=== PATIENT | male | born 1950 | race Caucasian/White ===

== ENCOUNTER 2016-11-05 21:33 | Inpatient (IN) | payer OTHER ==
[~2016-11-05] VITALS: Ht 172.7 cm; Wt 76.4 kg
[2016-11-05 22:36] LABS: BASOPHILS # (AUTO) 0.1 /CMM (0.0-0.2); BASOPHILS % (AUTO) 0.7 % (0.0-2.0); EOSINOPHILS % (AUTO) 0.5 % (0.0-6.0); HEMATOCRIT 43 % (39-51); HEMOGLOBIN 14.4 g/dL (13.5-17.5); LYMPHOCYTES # (AUTO) 0.4 /CMM (0.8-4.8); LYMPHOCYTES % (AUTO) 5.1 % (20.0-44.0); MEAN CORPUSCULAR HEMOGLOBIN 34 PG (26.0-33.0); MEAN CORPUSCULAR HGB CONC 33 g/dl (31.0-36.0); MEAN CORPUSCULAR VOLUME 104 fL (80-96); MONOCYTES # (AUTO) 0.4 /CMM (0.1-1.30); MONOCYTES % (AUTO) 4.9 % (2.0-12.0); NEUTROPHILS # (AUTO) 7.1 /CMM (1.8-8.9); NEUTROPHILS % (AUTO) 88.8 % (43.0-81.0); PLATELET COUNT (AUTO) 196 /CMM (150-450); RDW COEFFICIENT OF VARIATION 13.8 (11.5-15.0); RED BLOOD CELL COUNT(AUTO) 4.19 MIL/uL (4.5-6.0)
[2016-11-05 22:41] LABS: CARBON DIOXIDE 22 mmol/L (21-32); CHLORIDE 97 mmol/L (98-107); CREATININE 0.9 mg/dL (0.6-1.3); GLUCOSE 110 mg/dL (74-106); POTASSIUM 3.3 mmol/L (3.5-5.1); SODIUM SERUM 135 mmol/L (136-145); UREA NITROGEN, BLOOD 18 mg/dL (7-18)
[2016-11-05 22:47] LABS: INR 0.97 (0.87-1.13); PROTHROMBIN TIME 10.4 SECS (9.5-12.7)
[2016-11-05 22:52] LABS: TROPONIN I < 0.017 ng/mL (0.00-0.056)
[2016-11-05 22:55] LABS: ALANINE AMINOTRANSFERASE 29 U/L (12-78); ALBUMIN 3.4 g/dL (3.4-5.0); ALKALINE PHOSPHATASE 97 U/L (46-116); ASPARTATE AMINOTRANSFERASE 35 U/L (15-37); BILIRUBIN,DIRECT 0.5 mg/dL (0.0-0.2); BILIRUBIN,TOTAL 1.1 mg/dL (0.2-1.0); TOTAL PROTEIN, SERUM 8.3 g/dL (6.4-8.2)
[2016-11-05 23:25] LABS: SERUM AMMONIA < 10 umol/L (11-32)
[2016-11-05 23:36] LABS: APPEARANCE,URINE CLEAR (CLEAR); BILIRUBIN,URINE 2+ (NEGATIVE); BLOOD, URINE NEGATIVE Ery/uL (NEGATIVE); COLOR,URINE DARK YELLO (YELLOW); KETONES,URINE 3+ (NEGATIVE); LEUKOCYTE ESTERASE ,URINE NEGATIVE (NEGATIVE); NITRITE, URINE NEGATIVE (NEGATIVE); PROTEIN,URINE TRACE mg/dl (NEGATIVE); UGLUCOSE NEGATIVE (NEGATIVE); UROBILINOGEN,URINE >=8.0 EU/dL (0.2)
[2016-11-05 23:39] LABS: ACETAMINOPHEN 0 ug/ml (10-30); SALICYLATE 2.6 mg/dL (2.8-20.0)
[2016-11-05 23:40] LABS: THYROID STIMULATING HORMONE 3.419 uIU/mL (0.358-3.74)
[2016-11-05 23:48] LABS: BACTERIA,URINE None seen /HPF (None Seen); MUCUS,URINE Few /LPF (None Seen); RBC,URINE 0-2 /HPF (0-2); SQUAMOUS EPITHELIAL CELL,UR Few /HPF (None Seen)
[2016-11-06 02:09] VITALS: BP 142/81
[2016-11-06 02:10] VITALS: BP 142/81
[2016-11-06 04:00] VITALS: BP 145/82
[2016-11-06 06:43] LABS: ALBUMIN 2.6 g/dL (3.4-5.0); BILIRUBIN,TOTAL 0.8 mg/dL (0.2-1.0); CALCIUM, SERUM 7.8 mg/dL (8.5-10.1); CREATININE 0.5 mg/dL (0.6-1.3); MAGNESIUM 1.7 mg/dL (1.8-2.4); PHOSPHORUS 2.8 mg/dL (2.5-4.9); POTASSIUM 3.5 mmol/L (3.5-5.1); TOTAL PROTEIN, SERUM 6.6 g/dL (6.4-8.2)
[2016-11-06 06:54] LABS: BASOPHILS % (AUTO) 0.5 % (0.0-2.0); EOSINOPHILS % (AUTO) 0.7 % (0.0-6.0); HEMATOCRIT 39 % (39-51); HEMOGLOBIN 12.9 g/dL (13.5-17.5); LYMPHOCYTES # (AUTO) 0.7 /CMM (0.8-4.8); LYMPHOCYTES % (AUTO) 10.1 % (20.0-44.0); MEAN CORPUSCULAR HEMOGLOBIN 34 PG (26.0-33.0); MEAN CORPUSCULAR HGB CONC 33 g/dl (31.0-36.0); MEAN CORPUSCULAR VOLUME 103 fL (80-96); MONOCYTES # (AUTO) 0.6 /CMM (0.1-1.30); MONOCYTES % (AUTO) 8.9 % (2.0-12.0); NEUTROPHILS # (AUTO) 5.3 /CMM (1.8-8.9); NEUTROPHILS % (AUTO) 79.8 % (43.0-81.0); PLATELET COUNT (AUTO) 158 /CMM (150-450); RDW COEFFICIENT OF VARIATION 13.6 (11.5-15.0); RED BLOOD CELL COUNT(AUTO) 3.76 MIL/uL (4.5-6.0); WHITE BLOOD COUNT (AUTO) 6.6 K/uL (4.3-11.0)
[2016-11-06 08:00] VITALS: BP_SYST 117; BP_SYST 147; BP_DIAS 75
[2016-11-06] MEDS ORDERED: VERA240T35 PO (09:32)
[2016-11-06] MEDS ORDERED: GABA-534 PO (09:32)
[2016-11-06] MEDS ORDERED: METO-304 PO (09:32)
[2016-11-06] MEDS ORDERED: IBUP-1482 PO (09:32)
[2016-11-06] MEDS ORDERED: HYDR-3976 PO (09:32)
[2016-11-06] MEDS ORDERED: HYDR-552 PO (09:32)
[2016-11-06] MEDS ORDERED: CLON1TAB4 PO (09:32)
[2016-11-06 16:00] VITALS: BP_SYST 141; BP_SYST 144; BP_DIAS 76
[2016-11-06 20:00] VITALS: BP 154/59
[2016-11-07 04:00] VITALS: BP 148/60
[2016-11-07 06:50] LABS: CALCIUM, SERUM 8.1 mg/dL (8.5-10.1); CREATININE 0.6 mg/dL (0.6-1.3); MAGNESIUM 1.8 mg/dL (1.8-2.4)
[2016-11-07 07:09] LABS: POTASSIUM 2.7 mmol/L (3.5-5.1)
[2016-11-07 08:00] VITALS: BP_SYST 118; BP_SYST 153; BP_DIAS 103; BP_DIAS 70
[2016-11-07 13:23] VITALS: BP 147/79
[2016-11-07 16:00] VITALS: BP 146/69
[2016-11-07 20:00] VITALS: BP 148/74
[2016-11-08] MEDS ORDERED: GABA-534 PO (02:45)
[2016-11-08] MEDS ORDERED: NAPH30DR OP (02:45)
[2016-11-08] MEDS ORDERED: CYAN10009 PO (02:45)
[2016-11-08 07:42] LABS: BASOPHILS # (AUTO) 0.1 /CMM (0.0-0.2); BASOPHILS % (AUTO) 1.1 % (0.0-2.0); EOSINOPHILS # (AUTO) 0.1 /CMM (0.0-0.7); EOSINOPHILS % (AUTO) 1.7 % (0.0-6.0); HEMATOCRIT 40 % (39-51); HEMOGLOBIN 13.3 g/dL (13.5-17.5); LYMPHOCYTES # (AUTO) 0.5 /CMM (0.8-4.8); LYMPHOCYTES % (AUTO) 11.5 % (20.0-44.0); MEAN CORPUSCULAR HEMOGLOBIN 34 PG (26.0-33.0); MEAN CORPUSCULAR HGB CONC 34 g/dl (31.0-36.0); MEAN CORPUSCULAR VOLUME 102 fL (80-96); MONOCYTES # (AUTO) 0.3 /CMM (0.1-1.30); MONOCYTES % (AUTO) 6.7 % (2.0-12.0); NEUTROPHILS # (AUTO) 3.7 /CMM (1.8-8.9); PLATELET COUNT (AUTO) 186 /CMM (150-450); RDW COEFFICIENT OF VARIATION 13.4 (11.5-15.0); WHITE BLOOD COUNT (AUTO) 4.7 K/uL (4.3-11.0)
[2016-11-08 07:53] LABS: CALCIUM, SERUM 8.2 mg/dL (8.5-10.1); CREATININE 0.7 mg/dL (0.6-1.3)
[2016-11-08 07:57] LABS: POTASSIUM 2.7 mmol/L (3.5-5.1)
[2016-11-08 08:00] VITALS: BP 176/82
[2016-11-08 16:00] VITALS: BP 154/75
[2016-11-08 20:00] VITALS: BP 143/62
[2016-11-09 07:40] LABS: CALCIUM, SERUM 8.6 mg/dL (8.5-10.1); CREATININE 0.5 mg/dL (0.6-1.3); POTASSIUM 3.4 mmol/L (3.5-5.1)
[2016-11-09 08:00] VITALS: BP 127/82
[2016-11-09 16:00] VITALS: BP 124/87
[2016-11-09 20:00] VITALS: BP 126/72
[2016-11-10] VITALS: BP 117/66
[2016-11-10 07:21] LABS: CALCIUM, SERUM 8.4 mg/dL (8.5-10.1); CREATININE 0.6 mg/dL (0.6-1.3); POTASSIUM 3.3 mmol/L (3.5-5.1)
[2016-11-10 08:00] VITALS: BP 136/70
[2016-11-10 16:00] VITALS: BP 120/67
[2016-11-10 20:00] VITALS: BP 127/75
[2016-11-11 07:38] LABS: CALCIUM, SERUM 8.7 mg/dL (8.5-10.1); CREATININE 0.5 mg/dL (0.6-1.3); POTASSIUM 3.5 mmol/L (3.5-5.1)
[2016-11-11 08:00] VITALS: BP_SYST 158; BP_SYST 160; BP_DIAS 66; BP_DIAS 67
[2016-11-11 16:00] VITALS: BP 100/78
== END 2016-11-11 18:20 | DRG 640 ==
LOC: ER 21:36 → TELE 11-06 01:54 → MED 11-06 02:46 → TELE 11-06 03:57 → MED 11-06 09:42
PROVIDERS: ADMIT Internal Medicine; ATTEND Internal Medicine
PROC: 05H633Z Insertion of Infusion Device into Left Subclavian Vein, Percutaneous Approach (ICD-10-PCS; principal; 2016-11-09)
PROC: B547ZZA Ultrasonography of Left Subclavian Vein, Guidance (ICD-10-PCS; 2016-11-09)
DX: E86.0 Dehydration (principal); G93.41 Metabolic encephalopathy; L89.152 Pressure ulcer of sacral region, stage 2; E44.0 Moderate protein-calorie malnutrition; G61.0 Guillain-Barre syndrome; E87.2 Acidosis; E87.6 Hypokalemia; D53.9 Nutritional anemia, unspecified; E53.8 Deficiency of other specified B group vitamins; E78.5 Hyperlipidemia, unspecified; I10 Essential (primary) hypertension; K21.9 Gastro-esophageal reflux disease without esophagitis; Z79.899 Other long term (current) drug therapy
CPT/HCPCS: 36415; 70450-TC; 71010-TC; 80048-TC; 80053-TC; 80061-TC; 80076-TC; 80305; 81000-TC; 82140-TC; 82962-TC; 83605-TC; 83735-TC; 84100-TC; 84443-TC; 84484-TC; 85025-TC; 85730-TC; 87040-TC; 87081-TC; 87086-TC; 92521; 92526; A4606; A6248; G0480; J1885; J2543; J3370; J3475; J3480; J3490; J7030; J7040; J7060; Z7610